=== PATIENT | female | born 1975 | race Caucasian/White ===

== ENCOUNTER → 2021-06-14 08:42 | Outpatient (BNVA) | payer OTHER, MEDICAID, SELFPAY | PROVIDERS: Visit Provider Nurse Practitioner Family | DX: R41.3 Other amnesia (principal); F09 Unspecified mental disorder due to known physiological condition; F07.81 Postconcussional syndrome; G47.19 Other hypersomnia; R06.83 Snoring | CPT/HCPCS: 99212 ==

== ENCOUNTER → 2021-08-31 08:26 | Outpatient (BNVA) | payer OTHER, MEDICAID, SELFPAY | PROVIDERS: Visit Provider Nurse Practitioner Family | DX: F07.81 Postconcussional syndrome (principal); F09 Unspecified mental disorder due to known physiological condition; G47.19 Other hypersomnia; R41.3 Other amnesia; R06.83 Snoring | CPT/HCPCS: 99212 ==

== ENCOUNTER → 2021-10-13 21:39 | Outpatient (REF) | payer OTHER, SELFPAY | LOC: HO.SL 21:39 | PROVIDERS: Visit Provider Nurse Practitioner Family | DX: G47.10 Hypersomnia, unspecified (principal); R06.83 Snoring; G47.61 Periodic limb movement disorder | CPT/HCPCS: 95810 ==

== ENCOUNTER → 2021-12-07 08:50 | Outpatient (BNVA) | payer OTHER, SELFPAY | PROVIDERS: Visit Provider Nurse Practitioner Family | DX: F07.81 Postconcussional syndrome (principal); R41.3 Other amnesia; F09 Unspecified mental disorder due to known physiological condition | CPT/HCPCS: 99212 ==

== ENCOUNTER → 2022-01-10 08:09 | Outpatient (BNVA) | payer OTHER, SELFPAY | PROVIDERS: Visit Provider Nurse Practitioner Family | DX: F07.81 Postconcussional syndrome (principal); R51.9 Headache, unspecified | CPT/HCPCS: 99212 ==

== ENCOUNTER → 2022-05-09 08:32 | Outpatient (BNVA) | payer OTHER, SELFPAY | PROVIDERS: Visit Provider Nurse Practitioner Family | DX: G43.009 Migraine without aura, not intractable, without status migrainosus (principal); F07.81 Postconcussional syndrome; R61 Generalized hyperhidrosis; R53.83 Other fatigue; Z79.899 Other long term (current) drug therapy | CPT/HCPCS: 99212 ==

== ENCOUNTER 2023-02-25 13:27 | Outpatient (AMB) | payer OTHER, SELFPAY ==
--- NOTE | 2023-02-25 13:27 | MHC.OFFVIS ---
Intake Vital Signs 02/25/23 13:32 Height 5 ft 5 in Weight 178 lb BMI 29.6 BP 118/80 Blood Pressure Location Rt brachial Pulse 86 Pulse Source Pulse Oximeter Pulse Oximetry (%) 9 L Intake Visit Reasons: Follow up - Migraines-Confirmed Intake Note: Patient presents for follow up. Patient states my migraines are about the same a little better though. i get about 2-3 times a week. Allergies No Known Allergies Allergy (Verified 02/25/23 13:33) Medication List - Last Reconciled 02/25/23 by SOPHIE Dorado albuterol sulfate 90 mcg/actuation 2 puffs inhalation Q6H PRN amitriptyline 30 mg (3 x 10 mg) PO BEDTIME 30 days aripiprazole 2.5 mg PO DAILY baclofen 10 mg PO BEDTIME buspirone 15 mg PO TID cetirizine (Zyrtec) 10 mg PO DAILY PRN diazepam 5 mg PO BID PRN dicyclomine 20 mg PO QID escitalopram oxalate (Lexapro) 20 mg PO DAILY fluticasone propionate 50 mcg/actuation 2 sprays intranasal DAILY lamotrigine 200 mg PO BID linaclotide (Linzess) 145 mcg PO DAILY lisdexamfetamine (Vyvanse) 70 mg PO QAM magnesium citrate 250 mg PO DAILY meloxicam 7.5 mg PO BID uhyzgemy-tvhz-TT-calcium-mins 9 mg iron-400 mcg (Therapeutic-M) 1 tab PO DAILY norethindrone-ethin estradiol 0.5-35 mg-mcg (Nortrel) 1 tab PO DAILY plecanatide (Trulance) 3 mg PO DAILY pregabalin (Lyrica) 225 mg PO BID propranolol ER 60 mg PO BEDTIME 30 days sumatriptan succinate 100 mg PO Q2H PRN 30 days timolol maleate 0.5% 1 drp ophthalmic (eye) QAM trazodone 100 mg PO BEDTIME PRN valacyclovir 500 mg PO DAILY HPI HPI Comments History of Present Illness Details 47-yr-old female presents for f/u visit. Pt denies any significant interval medical changes. Pt reports she is having 3-4 migraine days per week. She feels she is managing this ok with her current med regimen, and the sumatriptan. She is also doing cold wash clothes, showers which helps. 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 She is on Vyvanse per psychiatry- states it is hard to tell what helps or not- as she takes so many meds. [facility] Medical History Cervical spondylolysis IBS (irritable bowel syndrome) Surgical History H/O spinal fusion Hx of hand surgery Family History Father HTN (hypertension) Cancer Social History Alcohol intake: never Patient Tobacco Use Status: Never used Tobacco Review of Systems Const All systems reviewed & are unremarkable except as noted in HPI and below Physical Exam Vital Signs: Last Vital Signs Pulse 86 02/25/23 13:32 BP 118/80 02/25/23 13:32 Pulse Ox 9 L 02/25/23 13:32 BMI result Body Mass Index 29.6 Const General: cooperative and no acute distress Orientation/consciousness: patient oriented x3 HEENT Head: Yes normocephalic Resp Effort & Inspection: normal respiratory effort and able to speak in complete sentences Neuro General: patient oriented x3, gait normal and CN's II-XI intact bilaterally Cognition (Neuro): normal cognition Motor exam (neuro): 5/5 motor strength present throughout Psych Appearance: grossly normal Mental Status: mental status grossly normal Speech and movement: Normal speech and movement present Affect: normal affect Attitude: cooperative Thought process: Normal thought process present Thought content: Normal thought content present Insight: Good insight present (Psych) Judgement: Good judgement present (Psych) Assessment & Plan Assessment & Plan (1) Postconcussional syndrome: Comment: headache, photophobia, cognitive diff- s/p workplace injury Feb 2018. Code(s): F07.81 - Postconcussional syndrome (2) Migraine without aura: Code(s): G43.009 - Migraine without aura, not intractable, without status migrainosus Plan Continue Propranolol ER 60mg qhs Continue amitriptyline 30-40 mg q.h.s. Continue sumatriptan as needed at onset of headache. Pt may benefit from trying Migraine Cooling Cap. Note- pt is needle phobic- declines trial of CGRP MaB (sc or IV) f/u in 6 months or sooner prn. Medications: Refilled amitriptyline 30 mg (3 x 10 mg) PO BEDTIME 30 days 90 tabs 6RF sumatriptan succinate do not exceed 2 tabs/day, 4 tabs/week (may take w/ Aleve or Ibuprofen) 100 mg PO Q2H 30 days PRN 12 tabs 6RF migraine headache Coding Level of Care Code Est Pt Level 4 (09931) Diagnoses Postconcussional syndrome F07.81 Migraine without aura G43.009
[2023-02-25 13:32] VITALS: BP 118/80; PULSE 86; O2SAT 9; BMI 29.6
== END 2023-02-25 14:04 | disposition home or self-care (01) ==
PROVIDERS: Visit Provider Nurse Practitioner Family
DX: G43.009 Migraine without aura, not intractable, without status migrainosus (principal); F07.81 Postconcussional syndrome
CPT/HCPCS: 99213

== ENCOUNTER → 2023-02-25 13:27 | Outpatient (BNVA) | payer OTHER, SELFPAY | PROVIDERS: Visit Provider Nurse Practitioner Family | DX: G43.009 Migraine without aura, not intractable, without status migrainosus (principal); F07.81 Postconcussional syndrome | CPT/HCPCS: 99212 ==